=== PATIENT | male | born 1970 | race Two or more races ===

== ENCOUNTER → 2017-07-22 | Outpatient (CLI) | payer OTHER ==
--- NOTE | 2017-07-22 11:53 | Diagnostic Imaging Report ---
PROCEDURE:US ABDOMEN LIMITED COMPARISON:None. INDICATIONS:RUQ PAIN TECHNIQUE: Haney-scale and color doppler transverse and longitudinal images of the right upper quadrant of the abdomen were obtained. FINDINGS: Limited examination due to excessive bowel gas. Liver: 16.0 cm in right mid-clavicular line. Increased echogenicity. No masses. Main portal vein: 0.6 cm Gallbladder: No stones, wall thickening or pericholecystic fluid. Common Bile Duct: 0.3 cm Sonographic Snow's sign: Negative Right kidney: 10.2 cm in length. Normal echogenicity. No solid masses or hydronephrosis. Pancreas: Limited visualization due to overlying bowel gas Inferior vena cava: Patent Aorta: Limited visualization due to overlying bowel gas. Ascites: None in the right upper quadrant of the abdomen. CONCLUSION: Diffuse hepatic steatosis. No gallbladder abnormality or biliary ductal dilatation. Dictated by: Hansel Siddiqui M.D. on 07/22/2017 at 11:54 Electronically approved by: Hansel Siddiqui M.D. on 07/22/2017 at 11:54
== END | disposition home or self-care (01) ==
LOC: US 10:39
PROVIDERS: ATTEND Surgery
DX: R10.11 Right upper quadrant pain (principal); K76.0 Fatty (change of) liver, not elsewhere classified
CPT/HCPCS: 76705